=== PATIENT | female | born 1980 | race Caucasian/White ===

== ENCOUNTER 2018-04-20 14:35 | Emergency (ER) | payer OTHER ==
[~2018-04-20] VITALS: Ht 154.9 cm; Wt 80.4 kg
[~2018-04-20 14:35] MED LIST: ADVAIR 250/501 DISK IH; ALBUTEROL SULF8.5 GM IH; ALLERGY RELIEF25 M1 PO; AMITRIPTYLINE H75 MG PO; AMOXICILLIN500 MG PO; ASPIRIN325 MG PO; ATENOLOL25 MG PO; BENADRYL ALLERG25 MG PO; BENTYL10 MG PO; BYETTA10 MCG/0.0 SC; CHERATUSSIN AC473 ML PO; CLARITIN10 MG PO; CLOTRIMAZOLE100 MG VG; DIFLUCAN150 MG PO; ELAVIL75 MG PO; FAMOTIDINE40 MG PO; FIORICET 50-301 EACH PO; FLEXERIL10 MG PO; FLONASE16 G1 BOTH NARES; GLUCOPHAGE XR,500 MG PO; GLUCOPHAGE1000 MG PO; GLUCOPHAGE500 MG PO; HUMULIN R500 UNITS/ SC; IMDUR30 MG PO; ISOSORBIDE MONO30 MG PO; Imdur PO; LEVAQUIN500 MG PO; METFORMIN HCL500 MG PO; MOBIC7.5 MG PO; MOTRIN600 MG PO; NABUMETONE750 M1 PO; NAPROSYN500 MG PO; NITROSTAT0.4 MG SL; ONE DAILY WOME1 EACH PO; PREDNISONE20 MG PO; PRILOSEC OTC20 MG PO; PRILOSEC40 MG PO; PROVENTIL,2.5 MG/3 M IH; PROVENTIL,200 INHALA IH; TENORMIN25 MG PO; TESSALON PERLE100 MG PO; TOPROL XL6.25 MG PO; ULTRAM50 MG PO; VERELAN 120 MG120 MG PO; VITAMIN D2000 UNIT PO; ZITHROMAX Z-PA250 MG PO; ZOFRAN4 MG PO; [UNRECOGNIZED DRUG - OTHER] PO; [UNRECOGNIZED DRUG - REMARK]
[2018-04-20] MEDS ORDERED: VIBRAMYCIN100 MG PO (15:26)
[2018-04-20] MEDS ORDERED: MOTRIN800 MG PO (15:26)
[2018-04-20 15:57] VITALS: BP 128/96
== END 2018-04-20 15:58 | disposition home or self-care (01) ==
LOC: EME 14:35
PROC: 0U9MXZZ Drainage of Vulva, External Approach (ICD-10-PCS; principal; 2018-04-20)
DX: N76.4 Abscess of vulva (principal); N76.2 Acute vulvitis; I10 Essential (primary) hypertension; E11.9 Type 2 diabetes mellitus without complications; Z79.4 Long term (current) use of insulin; Z95.1 Presence of aortocoronary bypass graft; Z85.3 Personal history of malignant neoplasm of breast; Z88.0 Allergy status to penicillin; Z88.2 Allergy status to sulfonamides
CPT/HCPCS: 99281; 99284